=== PATIENT | female | born 1960 | race Caucasian/White ===

== ENCOUNTER → 2021-06-01 | Outpatient (CLI) | payer BC ==
[~2021-06-01] MED LIST: CYMBALTA 30MG30 MG PO; CYMBALTA 60MG60 MG PO; EFFEXOR 75M75 MG/TAB PO; MIRAPEX 0.125MG PO; PROTONIX 40MG T40 MG PO; THYROID
== END ==
LOC: MC.RAD 10:30
DX: Z12.31 Encounter for screening mammogram for malignant neoplasm of breast (principal)

== ENCOUNTER → 2021-06-04 | Outpatient (CLI) | payer BC | LOC: MC.RAD 10:00 | DX: R92.0 Mammographic microcalcification found on diagnostic imaging of breast (principal) ==

== ENCOUNTER → 2021-06-13 | Outpatient (CLI) | payer BC | LOC: MC.RAD 06:50 | DX: R92.0 Mammographic microcalcification found on diagnostic imaging of breast (principal) ==

== ENCOUNTER → 2024-06-17 | Outpatient (CLI) | payer OTHER | LOC: MC.RAD 09:41 | DX: Z12.31 Encounter for screening mammogram for malignant neoplasm of breast (principal); N64.89 Other specified disorders of breast ==